=== PATIENT | male | born 1955 | race Caucasian/White ===

== ENCOUNTER → 2018-07-04 | Outpatient (CLI) | payer OTHER ==
[~2018-07-04] VITALS: Ht 175.3 cm; Wt 74.8 kg
[~2018-07-04] MED LIST: ACZONE60 GM TOP; BUPRENORPHINE HC2 MG SUBLING; CYMBALTA30 MG PO; CYMBALTA60 MG PO; DAPSONE25 MG PO; FLOMAX0.4 MG PO; NABUMETONE 750750 M1 PO; PRAVACHOL40 MG PO; PROBIOTIC1 EAC3 PO; VITAMIN B-121000 MC3 PO; ZOLOFT100 MG PO
--- NOTE | ~2018-07-04 | HPC ---
[facility] [address] [place] [address] PAIN MANAGEMENT CONSULTATION Name: NEDRA SPEARS Room #: REG FINN Chin.#: [id number] Admission: 07/04/18 ������������������ Attend Phys: Wander Burk MD Discharge: ������������������ Date of : 59 Report #: [id number] THIS REPORT FOR: //name// CC: [facility] physician/PCP Sean Burk DATE OF SERVICE: 07/04/2018 CHIEF COMPLAINT: Neck pain with some numbness in the left arm and pain in his right thumb. HISTORY OF PRESENT ILLNESS: The patient is a 62-year-old who has had a longstanding followup by the [facility]. Previously seen by Dr. Reji Randle and then by Dr. Javi Randle when Dr. Mendoza departed [place] in 05/2017. He has been treated for cervical radiculopathy following a posterior fusion that resulted in chronic ongoing pain. He also has low back pain and is status post laminectomy performed by Dr. Refugio Ardon, years ago. He has osteoarthritis and has had both hips replaced. 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 He describes a "rough year" and left that job. He has been covered by poor insurance, but just feels that things are improving some with stabilization of his life. He recently had a divorce as well. He has been given buprenorphine for chronic use. He takes one 2 mg tablet in the morning along with nabumetone, which has been helpful. On a typical day, he wakens with fairly significant discomfort and stiffness so common in patients with post-laminectomy syndrome and a history of arthritis with multiple joint replacements. He takes his medications, lays back down and 30 minutes later he is able to get going. Buprenorphine is a bit of an unusual medication to be used in this setting. He is not on Suboxone, the combination that includes naloxone and is used exclusively for opioid use disorder and addiction. He is on buprenorphine, which has indications for chronic pain. He is not sure why he is now on buprenorphine and has some misunderstanding about its actions. I had to remind him that it was an opioid. He reports that he did attend a pain program at [facility] in [place]. The 3-week day program focuses on managing pain without medication. Apparently, he was unable to completely manage pain and function well on a day to day basis without some form of medication. He reports that his primary symptom is left arm numbness without pain at night. The soreness in his neck seems to be managed fairly reasonably with the [facility] [address] [place] [address] PAIN MANAGEMENT CONSULTATION Name: NEDRA SPEARS Room #: REG [facility].#: [id number] Admission: 07/04/18 ������������������ Attend Phys: Wander Burk MD Discharge: ������������������ Date of : 59 Report #: [id number] buprenorphine. His opioid risk tool was completed and he is at low risk for addiction with an opioid risk score of 3 based upon a history of depression and ADD. PHYSICAL EXAMINATION: GENERAL: A pleasant 62-year-old. He is not a great historian. He remembers only certain parts of his previous visits when I queried him about certain things. He does not appear to be depressed or anxious and is outgoing. VITAL SIGNS: His blood pressure is 114/77, heart rate 76, respirations 14, BMI is 24.4. MUSCULOSKELETAL: Cervical range of motion is limited. There is a scar in the back in the lower cervical and upper thoracic region consistent with his report of cervical fusion. He has mild weakness noted in the left upper extremity. Deep tendon reflexes are diminished through the upper extremities, but are hyporeflexic in the lower extremities and he has 1 beat of clonus noted on the ankle on the right and one beat noted on the left. This would suggest some spinal cord compression at the cervical level. He has no other signs suggesting myelopathy. Some pain across the low back, limited range of motion there, mild straight leg raising discomfort. IMPRESSION: 1. Chronic cervicalgia, status post cervical laminectomy and fusion, Dr. Velasquez. 2. Chronic low back pain, status post laminectomy, Dr. Refugio Ardon. 3. Management of opioid medication buprenorphine for chronic intractable pain. Recently low dose 2 mg once daily seems to be satisfactory to help him with day to day improvement. RECOMMENDATIONS: I am going to continue him on his buprenorphine. I have renewed his medications for 3 months. I have renewed an opioid agreement and discussed the importance of safeguarding medications. He will let us know if he has any significant side effects or problems with medication before his next visit. Followup visit is scheduled in 3 months. ��������������������������������������������� ���������������������������������������� By: ��������������������������������������������� 1808 1336 Wander Burk MD /nt
[2018-07-04 10:29] VITALS: BP 114/77
--- NOTE | 2018-07-04 10:41 | NUR ---
Pain Clinic Assessment: 1. History of Osteoarthritis: History of Rheumatoid Arthritis: 2. Height: 5 ft. 9 in. 175.3 cm. Weight: 165.0 lb. oz. 74.844 kg. Patient's BMI: 24.4 3. Vital Signs: BP: 114/77 Pulse: 76 Resp: 14 Temp: 02 Sat: 96 ECG Mon: 4. Pain Intensity: 6 5. Fall Risk: Dizziness: N Needs help standing or walking: N Fallen in the last 3 months: N Fall risk comments: 6. Patient on Blood Thinner: None 7. History of Hypertension: N 8. Opioid Therapy greater than 6 weeks: Y Opiate Contract Signed: 9. Risk Assessment Tool Provided: LOW 10. Functional Assessment Tool: 11. Recreational Drug Use: Never Drug Type: Tobacco Use: Never Smoker Tobacco Type: Amount or Packs/day: How Many Years: Alcohol Use: Yes Frequency: Weekly Quant: 15+
== END ==
LOC: PAIN 07:06
DX: M54.2 Cervicalgia (principal); M54.5 Low back pain; M96.1 Postlaminectomy syndrome, not elsewhere classified; G89.4 Chronic pain syndrome; Z79.891 Long term (current) use of opiate analgesic

== ENCOUNTER → 2018-10-27 | Outpatient (CLI) | payer OTHER ==
[~2018-10-27] VITALS: Ht 175.3 cm; Wt 74.6 kg
[~2018-10-27] MED LIST changes: +CBD OIL SUBLING; +NABUMETONE 500500 M1 PO; +TRIAMCINOLONE A80 G2 TOP; +ZOLPIDEM TARTRA10 MG PO
[2018-10-27 10:15] VITALS: BP 109/78
--- NOTE | 2018-10-27 10:44 | NUR ---
Pain Clinic Assessment: 1. History of Osteoarthritis: SPINE History of Rheumatoid Arthritis: NONE 2. Height: 5 ft. 9 in. 175.3 cm. Weight: 164.4 lb. oz. 74.571 kg. Patient's BMI: 24.3 3. Vital Signs: BP: 109/78 Pulse: 85 Resp: 14 Temp: 02 Sat: 97 ECG Mon: 4. Pain Intensity: 6-7 5. Fall Risk: Dizziness: N Needs help standing or walking: N Fallen in the last 3 months: N Fall risk comments: 6. Patient on Blood Thinner: None 7. History of Hypertension: N 8. Opioid Therapy greater than 6 weeks: Y Opiate Contract Signed: 9. Risk Assessment Tool Provided: LOW 10. Functional Assessment Tool: 11. Recreational Drug Use: Never Drug Type: Tobacco Use: Never Smoker Tobacco Type: Amount or Packs/day: How Many Years: Alcohol Use: Yes Frequency: Daily Quant: 1
--- NOTE | 2018-11-01 17:25 | HPC ---
[facility] [address] [place] [address] PAIN MANAGEMENT CONSULTATION Name: NEDRA SPEARS Room #: REG FINN MStephanie.#: [id number] Admission: 10/27/18 ������������������ Attend Phys: Wander Burk MD Discharge: ������������������ Date of : 59 Report #: [id number] THIS REPORT FOR: //name// CC: [facility] physician/PCP Sean Burk DATE OF SERVICE: 10/27/2018 Followup visit for chronic cervicalgia status post cervical laminectomy and fusion. Chronic pain syndrome. Management of high risk medication for intractable pain. I am seeing the patient for the second time. He has been [facility]. He is on buprenorphine for pain, not for addiction. He takes 2 mg sublingual once daily and finds it quite satisfactory. He also uses a nonsteroidal anti-inflammatory drug. He does not complain much of medication related side effects and is grateful for the pain relief he receives from the buprenorphine. He is here today for renewal of his medication, would like a renewal of nabumetone. He also had some questions about medical marijuana. PHYSICAL EXAMINATION: He is 5 feet 9 inches, 164 pounds, BMI of 24.3. His blood pressure 109/78, heart rate 85, respirations 14. He scores his pain as a 6-7/10 when he is at work. Pain is worse as the day goes on. Most of his pain is in his neck and radiates to the scapula, but no further. He has tenderness around his scar. Deep tendon reflexes are normal. No strength loss. Sensation is diminished somewhat in the left arm. IMPRESSION: Cervicalgia. Mild recurrent radiculopathy with some numbness in the left arm. RECOMMENDATIONS: I will renew his buprenorphine at 2 mg sublingually daily with refills scheduled at four and eight weeks. Importance of safeguarding medication was discussed. He has no side effects. We discussed opioids, particularly the unusual opioid receptor activity a buprenorphine and its suitability as a chronic pain medication. I then discussed nonsteroidal anti-inflammatory drugs with him at some length. We discussed the different categories of NSAID and their safety profile. We discussed GI, cardiac and renal side effects. We talked about taking only one at a time and a proper dosing. He can use these as a p.r.n. medication and can use it in combination with his buprenorphine. [address] [address] PAIN MANAGEMENT CONSULTATION Name: NEDRA SPEARS Room #: REG FINN Velazco#: [id number] Admission: 10/27/18 ������������������ Attend Phys: Wander Burk MD Discharge: ������������������ Date of : 59 Report #: [id number] We also had a lengthy discussion about medical marijuana. [facility] will become 34 state in the [place] to allow medical marijuana sales. There is an article in the [place] paper today stating the [place] is the farthest along of any [facility] with the highest number of applications for dispensaries growing and physicians seeking to be certified. We will know more about [place]'s plan. I have shared with him information that I received from my recent trip to the annual international conference on opioids held in [place]. Much discussion there about buprenorphine as well as on medical marijuana with information from state word has been utilized. His medications renewed and questions were answered. Total time spent with the patient 25 minutes. Followup visit planned in three months. ��������������������������������������������� <ELECTRONICALLY SIGNED> ���������������������������������������� By: Wander Burk MD ��������������������������������������������� 11/01/18 1725 1344 [id number] Wander Burk MD /nt
== END ==
LOC: PAIN 06:56
DX: M54.12 Radiculopathy, cervical region (principal); M54.2 Cervicalgia; R20.0 Anesthesia of skin

== ENCOUNTER → 2019-01-30 | Outpatient (CLI) | payer BC ==
[~2019-01-30] VITALS: Ht 175.3 cm; Wt 71.2 kg
[2019-01-30 10:37] VITALS: BP 134/77
--- NOTE | 2019-01-30 10:45 | NUR ---
Pain Clinic Assessment: 1. History of Osteoarthritis: SPINE LEFT KNEE B/L HIPS History of Rheumatoid Arthritis: NONE 2. Height: 5 ft. 9 in. 175.3 cm. Weight: 157.0 lb. oz. 71.215 kg. Patient's BMI: 23.2 3. Vital Signs: BP: 134/77 Pulse: 104 Resp: 16 Temp: 02 Sat: 96 ECG Mon: 4. Pain Intensity: 5-TODAY, 7-AVG 5. Fall Risk: Dizziness: N Needs help standing or walking: N Fallen in the last 3 months: N Fall risk comments: 6. Patient on Blood Thinner: None 7. History of Hypertension: N 8. Opioid Therapy greater than 6 weeks: Y Opiate Contract Signed: 9. Risk Assessment Tool Provided: EUN 10. Functional Assessment Tool: 11. Recreational Drug Use: Never Drug Type: Tobacco Use: Never Smoker Tobacco Type: Amount or Packs/day: How Many Years: Alcohol Use: Yes Frequency: Weekly Quant: 10-12 WEEKLY
--- NOTE | 2019-01-31 09:24 | HPC ---
[facility] [address] [place] [address] PAIN MANAGEMENT CONSULTATION Name: NEDRA SPEARS [facility] [id number] Admission: 01/30/19 Attend Phys: Debi Ryan Discharge: Date of : 59 Report #: [id number] THIS REPORT FOR: //name// CC: Debi Burk MD DATE OF SERVICE: 01/30/2019 CHIEF COMPLAINT: Chronic cervicalgia, status post cervical laminectomy and fusion. HISTORY OF PRESENT ILLNESS: This is a very pleasant 63-year-old gentleman who returned to the pain clinic today for refill of his buprenorphine that he takes to help treat his chronic cervicalgia. He reports a pain score today of a 5/10. Pain is in his neck and occasionally in his lower back. He feels that it is a dull,throbbing, constant pain. It is worse with activity when he is on his feet. He currently works at [employer]. He finds this very beneficial to be around people and keeping him active. Some days he tells me he does overdo it and his pain is increase, but he feels that the medication is very beneficial in controlling most of his pain. He is wondering about if an increase on some days is feasible for him or not. He denies any problems with constipation or daytime sleepiness. ALLERGIES: GLUTEN. CURRENT LIST OF MEDICATIONS: Buprenorphine 2 mg daily, nabumetone p.r.n., CBD oil daily, Ambien 10 mg p.r.n., Cymbalta 90 mg daily, dapsone 25 mg daily, probiotic daily, vitamin B12, Zoloft 50 mg daily. PQRS: 1. Osteoarthritis in his spine, knees and hips. Denies any rheumatoid arthritis. 2. Height is 5 feet 9 inches, weight is 157, BMI is 23. 3. Vital signs: 134/77, pulse is 104, respirations 16, oxygen sat is 96. 4. Pain score is 5-7. 5. Denies dizziness, does not need help walking or standing, has not fallen in the last 3 months. 6. The patient is not on any blood thinners, but does take medicine for hypertension. 7. Opiate therapy is greater than 6 weeks; therefore, an opioid signed contract is on the chart. Risk assessment tool is low. Functional assessment is 2170. 8. Recreational drug use, he denies. He is not a smoker and drinks 10-12 [place] [address] PAIN MANAGEMENT CONSULTATION Name: TORYNEDRA JR Room #: [facility]#: [id number] Admission: 01/30/19 Attend Phys: eDbi Ryan Discharge: Date of : 59 Report #: [id number] PHYSICAL EXAMINATION: GENERAL: This is alert and orientated 62-year-old gentleman who appears his stated age, placing his current pain score at 5/10. HEENT: Normocephalic, atraumatic. Extraocular eye muscles are intact. Mucous membranes are moist. MUSCULOSKELETAL: Pain is in his neck that radiates into his scapula and occasionally into his arms with numbness and tingly. He has tenderness in his lumbar spine. Deep tendon reflexes are normal in his bilateral arms with no strength loss. Sensation is diminished slightly in his left arm compared to the right. IMPRESSION: 1. Cervicalgia. 2. Cervical radiculopathy, status post cervical laminectomy and fusion. 3. Management of high risk medications under terms of written opioid agreement. We reviewed the fact that opiate medications are being used to provide analgesia adequate to support activities of daily living, not attempting to achieve a specific pain score on the 0-10 Visual Analog Scale. The current opiate medications are providing sufficient analgesia to allow the patient to participate in activities of daily living. The patient is not exhibiting any aberrant behavior suggestive of drug diversion. The patient is not having any adverse reactions to medications. The patient is not suffering from daytime somnolence or mental acuity changes. The patient is managing opiate-induced constipation with appropriate adqa-itg-fewzysg agents and dietary considerations. The patient was counseled on concern for caution with operating a motor vehicle while using opiate medications. A physical exam was performed and the patient's functional status was evaluated. All patients with back pain were advised against the bed rest greater than 4 days and were advised to return to normal activities. Pain score assessment was noted and the treatment plan was reviewed with the patient. All current medications, both prescribed and OTC were reviewed and reconciled on the electronic medical record. Tobacco screening was accomplished and smoking cessation was advised when indicated. BMI was noted and diet/exercise modification was recommended for all patients following outside normal parameters. I reviewed with the patient today their responsibilities to safeguard prescription medications, reviewed their responsibility to utilize medications only as prescribed by the physician. They are to seek and receive pain medications only from 1 physician group ([facility]). They are to use 1 pharmacy and keep the clinic informed if they change pharmacies. Their responsibilities include making followup visits in a timely fashion and to avoid abrupt discontinuation of medication usage. Their responsibilities further include bringing their medications (bottles from the pharmacy with residual [facility] [address] [place] [address] PAIN MANAGEMENT CONSULTATION Name: NEDRA SPEARS JR Room #: REG FINN Velazco#: [id number] Admission: 01/30/19 Attend Phys: Debi Ryan Discharge: Date of : 59 Report #: [id number] pills) to the visit for possible confirmation of pill counts and the patient understands it is their responsibility to submit to random drug screens to ensure both that the medications prescribed are present, and that no other controlled substances are present. All prescriptions provided today were generated electronically. PLAN: 1. We discussed treatment options with the patient today. The patient finds that his buprenorphine is very beneficial in controlling his pain, some days, though when he is working harder at his current job at [employer], he finds that he needs to take an additional half a pill or sometimes 1 pill. We explained lowest most effective dose to him. He verbalizes understanding. He will try to take it as as needed basis instead of upon arising every day. 2. The patient finds that the CBD oil is also beneficial in controlling his pain. He does take that every day. 3. The patient is not needing nabumetone today. He finds that Advil as just as effective in controlling his pain, taking 4 tablets once a day when he feels that he needs it. We did discuss GI issues with nonsteroidal anti-inflammatories and the risk of cardiac and renal side effects taking them. We encouraged him taking them as needed only and not on a daily basis if he does not need them. 4. Scripts given for his buprenorphine 2 mg, #30 with 2 additional refills. The patient will follow up in 3 months. This medication places him at 20 morphine mEq, according to the CDC guidelines. 5. Dr. Wander Burk did see the patient and collaborated care with me today. <ELECTRONICALLY SIGNED> By: Debi Ryan 01/31/19 0924 1130 0032 Debi Ryan /nt
== END ==
LOC: PAIN 06:48
DX: M54.2 Cervicalgia (principal); M54.12 Radiculopathy, cervical region; Z79.899 Other long term (current) drug therapy

== ENCOUNTER → 2019-06-08 | Outpatient (CLI) | payer BC ==
[~2019-06-08] VITALS: Ht 175.3 cm; Wt 74.7 kg
[2019-06-08 14:36] VITALS: BP 116/76
--- NOTE | 2019-06-08 15:09 | NUR ---
Pain Clinic Assessment: 1. History of Osteoarthritis: SPINE LEFT KNEE B/L HIPS History of Rheumatoid Arthritis: NONE 2. Height: 5 ft. 9 in. 175.3 cm. Weight: 164.6 lb. oz. 74.662 kg. Patient's BMI: 24.3 3. Vital Signs: BP: 116/76 Pulse: 74 Resp: 14 Temp: 02 Sat: 98 ECG Mon: 4. Pain Intensity: 6 5. Fall Risk: Dizziness: N Needs help standing or walking: N Fallen in the last 3 months: N Fall risk comments: 6. Patient on Blood Thinner: None 7. History of Hypertension: N 8. Opioid Therapy greater than 6 weeks: Y Opiate Contract Signed: 07/04/18 9. Risk Assessment Tool Provided: LOW-3 10. Functional Assessment Tool: 11. Recreational Drug Use: Never Drug Type: Tobacco Use: Never Smoker Tobacco Type: Amount or Packs/day: How Many Years: Alcohol Use: Yes Frequency: Quant:
--- NOTE | 2019-06-09 11:28 | HPC ---
[facility] [place] [address] PAIN MANAGEMENT CONSULTATION Name: NEDRA SPEARS Manuel EPSTEIN [id number] Admission: 06/08/19 Attend Phys: Debi Ryan Discharge: Date of : 59 Report #: [id number] THIS REPORT FOR: cc: Sean Reyes MD,Sean Ryan,Debi NEELY ~ THIS REPORT FOR: //name// CC: Debi Reyes DATE OF SERVICE: 06/08/2019 CHIEF COMPLAINT: Chronic cervicalgia, status post cervical laminectomy and fusion and left knee pain. HISTORY OF PRESENT ILLNESS: This is a pleasant 63-year-old gentleman who returns to the pain clinic today for refill of his buprenorphine. He finds this very beneficial in helping with his low back, neck and left knee pain, stating his pain score is 6/10 today. He reports that it is a constant numbness pain that he experiences. He feels that it is worse after prolonged standing or sitting. He feels the medication as well as stretching and rest are very beneficial. The patient was scheduled to have a left knee surgery at earlier this month, but was put on hold due to a sore that was present. He has not had time to reschedule this, but plans to have the surgery in July. He feels that he will be able to walk much better after he has his total knee replaced and hopeful that may be he may be able to decrease some of his buprenorphine. The patient denies any problems with constipation or sleepiness as a result of his opioid medications. ALLERGIES: GLUTEN. CURRENT LIST OF MEDICATIONS: Buprenorphine 2 mg daily, CBD oil p.r.n., Aristocort, Ambien p.r.n., duloxetine, lactobacillus, dapsone, vitamin B12 and Cymbalta 60 mg. PQRS: 1. He has osteoarthritis in his spine, knees and hips. Denies any rheumatoid arthritis. 2. Height is 5 feet 9 inches, weight is 164, BMI is 24. 3. Vital signs; 116/76, pulse is 74, respirations 14, oxygen sat is 98. 4. Pain score 6/10. 5. Denies dizziness, does not need help walking or standing, has not fallen in the last [address] [address] PAIN MANAGEMENT CONSULTATION Name: TORYNEDRA Room #: REG [facility].#: [id number] Admission: 06/08/19 Attend Phys: Debi Ryan Discharge: Date of : 59 Report #: [id number] 6. The patient is not on any blood thinners or medicines for hypertension. His opioid therapy is greater than 6 weeks; therefore, an opioid signed contract is on the chart. 7. His risk assessment is low. Functional assessment is 40/70. 8. Recreational drug use, he denies. He is not a smoker and occasionally drinks alcohol. According to the prescription monitoring system, the patient is filling appropriately, filling them in a timely fashion from one physician. He is due to fill his medications today. According to the CDC guidelines, his morphine milliequivalent per day is 2. PHYSICAL EXAMINATION: GENERAL: This is alert and orientated, very pleasant 63-year-old gentleman who appears his stated age, placing his current pain score today at 6/10. HEENT: Normocephalic, atraumatic. Extraocular eye muscles are intact. Mucous membranes are moist. MUSCULOSKELETAL: He has tenderness in his left knee and pain that is increased with ambulation. Pain in his neck radiates into his scapula into his bilateral arms with numbness noted. Sensation is diminished slightly in his left arm when compared to the right, but upper extremity strength is equal at 5/5. IMPRESSION: 1. Cervicalgia. 2. Cervical radiculopathy, status post cervical laminectomy and fusion. 3. Osteoarthritis of the bilateral knees, left greater than right. 4. Management of high risk medications under terms of written opioid agreement. PLAN: 1. We discussed treatment options with the patient today. The patient finds his medication very beneficial taking one tablet a day. He will have Dr. Wander Burk send, prepare this prescription for his buprenorphine, #30 with 2 additional refills. 2. The patient states he is not taking nabumeton currently. He was needed to be off of this prior to his knee surgery. 3. The patient states he had tried CBD oil in the past. He is unsure if it is beneficial. He has not used it for 10 days and has not noticed a difference in any of his symptoms. He is unsure that he will continue this medication. 4. The patient is seen in collaboration with Dr. Wander Burk. He will return in 3 months for an appointment as needed. <ELECTRONICALLY SIGNED> By: Debi Ryan 06/09/19 1128 1630 2216 Debi Ryan /kyler
== END ==
LOC: PAIN 06-01 12:13
DX: M54.12 Radiculopathy, cervical region (principal); M17.0 Bilateral primary osteoarthritis of knee; G89.29 Other chronic pain; Z98.1 Arthrodesis status; Z88.8 Allergy status to other drugs, medicaments and biological substances; Z79.899 Other long term (current) drug therapy

== ENCOUNTER → 2019-08-28 | Outpatient (CLI) | payer BC ==
[~2019-08-28] VITALS: Ht 175.3 cm; Wt 73.7 kg
[2019-08-28 10:56] VITALS: BP 106/69
--- NOTE | 2019-08-28 11:04 | NUR ---
Pain Clinic Assessment: 1. History of Osteoarthritis: SPINE LEFT KNEE B/L HIPS History of Rheumatoid Arthritis: NONE 2. Height: 5 ft. 9 in. 175.3 cm. Weight: 162.4 lb. oz. 73.664 kg. Patient's BMI: 24.0 3. Vital Signs: BP: 106/69 Pulse: 79 Resp: 14 Temp: 02 Sat: 97 ECG Mon: 4. Pain Intensity: 6 5. Fall Risk: Dizziness: N Needs help standing or walking: N Fallen in the last 3 months: N Fall risk comments: 6. Patient on Blood Thinner: None 7. History of Hypertension: N 8. Opioid Therapy greater than 6 weeks: Y Opiate Contract Signed: 07/04/18 9. Risk Assessment Tool Provided: LOW-3 10. Functional Assessment Tool: 11. Recreational Drug Use: Current within past 3 mos Drug Type: MARIJUANA Tobacco Use: Never Smoker Tobacco Type: Amount or Packs/day: How Many Years: Alcohol Use: Yes Frequency: Weekly Quant: 10 BEER
--- NOTE | 2019-08-30 15:34 | HPC ---
[facility] [place] [address] PAIN MANAGEMENT CONSULTATION Name: NEDRA SPEARS JR [facility]: [id number] Admission: 08/28/19 Attend Phys: Debi Ryan Discharge: Date of : 59 Report #: [id number] THIS REPORT FOR: cc: Sean Reyes MD,Sean Ryan,Debi NEELY ~ CC: Wander Lin MD DATE OF SERVICE: 08/28/2019 CHIEF COMPLAINT: Chronic cervicalgia, status post cervical laminectomy and fusion, left knee pain and right thumb pain. HISTORY OF PRESENT ILLNESS: This is a very pleasant 63-year-old gentleman who returns to the pain clinic today for refills of his buprenorphine that he feels is very beneficial in controlling most of his pain in his neck. He continues to have ongoing left knee pain. He was to have surgery, but it has been postponed twice, once for the COVID virus and once due to a sore on his knee. He states at this time, he is going to continue to put it off, it has slowly improved. He now is complaining of right hand and especially right thumb pain. He is going to undergo a procedure in October with orthopedic at [facility]. The patient today is reporting that his pain is increased with being on his feet and working too long. He does work at [employer] and has been quite busy. He feels that stretching as well as his medication has been beneficial. ALLERGIES: GLUTEN. CURRENT LIST OF MEDICATIONS: Buprenorphine 2 mg daily, Ambien p.r.n., Cymbalta, lactobacillus, vitamin B12 and CBD oil. PATIENT'S PQRS: 1. He has arthritic changes in his spine, knees and hips as well as his hands. Denies any rheumatoid arthritis. 2. Height is 5 feet 9 inches, weight is 162, BMI is 24. 3. Vital signs 106/69, pulse is 79, respirations 14, oxygen sat is 97%. 4. Pain score is 6/10. 5. Denies dizziness, does not need help walking or standing, has not fallen in the last 3 months. 6. The patient is not on any blood thinners or medicine for hypertension. His opioid therapy is greater than 6 weeks; therefore, an opioid signed contract is on the chart. Risk assessment tool is low. Functional assessment is 40/70. 7. The patient currently uses edibles on a monthly basis. He denies any tobacco use and does drink beer weekly. 8. According to the prescription monitoring system, the patient is filling appropriately for his medication. He is due to fill at the end of this week. His morphine mEq is 2 according to [place] [address] PAIN MANAGEMENT CONSULTATION Name: NEDRA SPEARS JR Room #: REG FINN Velazco#: [id number] Admission: 08/28/19 Attend Phys: Debi Ryan Discharge: Date of : 59 Report #: [id number] PHYSICAL EXAMINATION: GENERAL: This is alert and orientated 63-year-old gentleman who appears his stated age, placing his current pain score at 6/10 today. HEENT: Normocephalic, atraumatic. Extraocular eye muscles are intact. MUSCULOSKELETAL: He has tenderness in his left knee that is increased with ambulation. Pain in his cervical spine that radiates into his scapula, into his bilateral arms with occasional numbness. Also complains of tenderness in his right thumb today. His upper extremity strength judged to be 5/5 in all major muscle groups. IMPRESSION: 1. Cervicalgia. 2. Cervical radiculopathy, status post cervical laminectomy and fusion. 3. Osteoarthritis involving the bilateral knees and hands. 4. Management of high risk medications under terms of written opioid agreement. We reviewed the fact that opiate medications are being used to provide analgesia adequate to support activities of daily living, not attempting to achieve a specific pain score on the 0-10 Visual Analog Scale. The current opiate medications are providing sufficient analgesia to allow the patient to participate in activities of daily living. The patient is not exhibiting any aberrant behavior suggestive of drug diversion. The patient is not having any adverse reactions to medications. The patient is not suffering from daytime somnolence or mental acuity changes. The patient is managing opiate-induced constipation with appropriate djkq-bgl-hrglkuz agents and dietary considerations. The patient was counseled on concern for caution with operating a motor vehicle while using opiate medications. PLAN: 1. We discussed treatment options with the patient today. The patient finds his Suboxone beneficial controlling his pain. He would like to continue this. He notices a significant increase in pain if he does forget to take his medicine upon awakening in the morning. Scripts will be given for #30 with 2 additional refills for a total of 3 months. 2. The patient reports he does continue CBD oil and occasionally will use edible marijuana for medicinal purposes. I explained to the patient he does live in [place], and it is not currently legal. He reports that he is moving to [place]. I encouraged him to talk to a medical marijuana doctor and offered his card today. The patient states he only prefers to use this on very increased pain days, mostly once a month. I explained to him that he will need to decide whether he would like to use medical marijuana or opioid medications. He does find the opioids more beneficial. He reports he may look into the medical marijuana doctors, but prefers to continue on his opioid medications. 3. The patient is seen with the collaboration with Dr. Wander Lin today. The patient will return in 3 months. At that time, we will do a random drug [address] [address] PAIN MANAGEMENT CONSULTATION Name: NEDRA SPEARS Room #: REG FINN Velazco#: [id number] Admission: 08/28/19 Attend Phys: Debi Ryan Discharge: Date of : 59 Report #: [id number] screen on the patient since it has been greater than one year since his last screen. <ELECTRONICALLY SIGNED> By: Debi Ryan 08/30/19 1534 [id number] Debi Ryan /nt
== END ==
LOC: PAIN 06:55
DX: M54.12 Radiculopathy, cervical region (principal); M25.561 Pain in right knee; M96.1 Postlaminectomy syndrome, not elsewhere classified; M25.562 Pain in left knee; M17.0 Bilateral primary osteoarthritis of knee; M19.042 Primary osteoarthritis, left hand; M19.041 Primary osteoarthritis, right hand; F11.20 Opioid dependence, uncomplicated; Z87.891 Personal history of nicotine dependence; Z79.899 Other long term (current) drug therapy; Z88.8 Allergy status to other drugs, medicaments and biological substances

== ENCOUNTER → 2019-12-07 | Outpatient (CLI) | payer BC ==
[~2019-12-07] VITALS: Ht 175.3 cm; Wt 74.6 kg
[2019-12-07 10:26] VITALS: BP 116/86
--- NOTE | 2019-12-07 10:34 | NUR ---
Pain Clinic Assessment: 1. History of Osteoarthritis: SPINE LEFT KNEE B/L HIPS History of Rheumatoid Arthritis: NONE 2. Height: 5 ft. 9 in. 175.3 cm. Weight: 164.4 lb. oz. 74.571 kg. Patient's BMI: 24.3 3. Vital Signs: BP: 116/86 Pulse: 95 Resp: 18 Temp: 02 Sat: 91 ECG Mon: 4. Pain Intensity: 6 5. Fall Risk: Dizziness: N Needs help standing or walking: N Fallen in the last 3 months: Y Fall risk comments: 6. Patient on Blood Thinner: None 7. History of Hypertension: N 8. Opioid Therapy greater than 6 weeks: Y Opiate Contract Signed: 07/04/18 9. Risk Assessment Tool Provided: LOW-3 10. Functional Assessment Tool: 11. Recreational Drug Use: Current within past 3 mos Drug Type: MARJUANA Tobacco Use: Never Smoker Tobacco Type: Amount or Packs/day: How Many Years: Alcohol Use: Yes Frequency: Quant:
--- NOTE | 2019-12-11 13:29 | HPC ---
[facility] [address] [place] [address] PAIN MANAGEMENT CONSULTATION Name: NEDRA SPEARS JR Room #: REG LEATHA Elsy.#: [id number] Admission: 12/07/19 Attend Phys: Debi Ryan Discharge: Date of : 59 Report #: [id number] THIS REPORT FOR: cc: Sean Reyes MD,Sean Ryan,Debi NEELY ~ CC: Wander Burk MD DATE OF SERVICE: 12/07/2019 CHIEF COMPLAINT: Chronic cervicalgia, status post cervical laminectomy and fusion and low back pain. HISTORY OF PRESENT ILLNESS: This is a 64-year-old gentleman who returns to the pain clinic today for a refill of his medications that he uses for his neck pain. He does report a pain score of 6/10 today, states it is a constant, aching pain. He has been experiencing some low back pain that has been radiating to his hips and knees. He believes that may be related to the weather changes. He states that his pain is worse when he is standing for a prolonged period of time, usually when he is working, but he has not been working at [employer] due to the COVID outbreak. He was a [employer] employee and they are not utilizing him at this time. He beleives the buprenorphine is very beneficial, taking it first thing in the morning. There are days that he does forget to take his medication and on those days, he feels that he does not have as much energy and does not accomplish as much. The patient reports he had a syncopal episode that his family did call the ambulance and required him to stay at [facility] for several days at the end of August. He did see a neurologist and a slope runner. Tests per his report were inconclusive. He has not started any new medicine and not had any further treatments. He has not had further episodes since that time. ALLERGIES: GLUTEN. CURRENT LIST OF MEDICATIONS: Buprenorphine 2 mg sublingual daily, Ambien at bedtime, Cymbalta 90 mg daily, dapsone 25 mg daily and vitamin B12. PQRS: 1. He has osteoarthritis in his spine, knees and hips. Denies any rheumatoid arthritis. 2. Height is 5 feet 9 inches, weight is 164, BMI is 24. 3. Vital signs: Blood pressure 116/86, pulse is 95, respirations 18, oxygen sat is 91. 4. Pain score 6/10. 5. Denies dizziness, does not need help walking or standing, has fallen in the last 3 months. The patient is not on any blood thinners [place] [address] PAIN MANAGEMENT CONSULTATION Name: NEDRA SPEARS Room #: REG [facility]#: [id number] Admission: 12/07/19 Attend Phys: Debi Ryan Discharge: Date of : 59 Report #: [id number] hypertension. 6. Opioid therapy is greater than 6 weeks; therefore, an opioid signed contract is on the chart. Risk assessment tool is low. Functional assessment is 43/70. 7. Recreational drug use in the past 3 months of marijuana. He does not smoke tobacco and does occasionally drink alcohol. According to the prescription monitoring system, he is filling appropriately. He is past due to fill his medications according to the prescription monitoring system and we will collect a random drug screen on this patient today. PHYSICAL EXAMINATION: GENERAL: This is alert and orientated 64-year-old gentleman who appears his stated age, placing his current pain score at 6/10 today. HEENT: Normocephalic, atraumatic. Extraocular eye muscles are intact. He is wearing a mask. MUSCULOSKELETAL: He has pain in his cervical spine that radiates into his scapula and with slight numbness in his hands. He has tenderness across his lumbosacral region that radiates into his legs and complains of left knee pain that does increase with ambulation. His upper and lower extremity strength judged to be 5/5 in all major muscle groups. The patient has a normal gait. IMPRESSION: 1. Cervicalgia. 2. Cervical radiculopathy, status post cervical laminectomy and fusion. 3. Osteoarthritis involving knees and hands. 4. Low back pain. 5. Management of high risk medications under terms of written opioid agreement. We reviewed the fact that opiate medications are being used to provide analgesia adequate to support activities of daily living, not attempting to achieve a specific pain score on the 0-10 Visual Analog Scale. The current opiate medications are providing sufficient analgesia to allow the patient to participate in activities of daily living. The patient is not exhibiting any aberrant behavior suggestive of drug diversion. The patient is not having any adverse reactions to medications. The patient is not suffering from daytime somnolence or mental acuity changes. The patient is managing opiate-induced constipation with appropriate izlk-lkm-opznjkp agents and dietary considerations. The patient was counseled on concern for caution with operating a motor vehicle while using opiate medications. PLAN: 1. We discussed treatment options with the patient today. He does find his buprenorphine beneficial in controlling his pain. We will refill this medication today of 2 mg 1 sublingual daily, quantity 30 with 2 additional refills. 2. We will obtain a random drug screen on this patient today. He did verify [address] [address] PAIN MANAGEMENT CONSULTATION Name: NEDRA SPEARS JR Room #: REG [facility]#: [id number] Admission: 12/07/19 Attend Phys: Debi Ryan Discharge: Date of : 59 Report #: [id number] that he took his medications this morning. 3. We did talk again, discussed medical marijuana and the fact that he does live in [place], though he has a [place] residence. He does occasionally use marijuana, though has not obtained a green card. We discussed this further. The patient reports he will no longer use medical marijuana. He would prefer to use his buprenorphine. He states he had used it once a week, but finds at times it makes him too confused when using the edibles. He reports he would like to continue with his current regimen of meds from Dr. Burk. 4. The patient is seen in collaboration today with Dr. Dodge who is covering for Dr. Burk today. The patient will return in 3 months. We encouraged to make a timely appointment since he took his last medications this morning. <ELECTRONICALLY SIGNED> By: Debi Ryan 12/11/19 1329 1126 1211 Debi Ryan /nt
== END ==
LOC: PAIN 06:44
PROVIDERS: ATTEND Clinical Nurse Specialist Adult Health
DX: M54.12 Radiculopathy, cervical region (principal); G89.29 Other chronic pain; M96.1 Postlaminectomy syndrome, not elsewhere classified; M43.26 Fusion of spine, lumbar region; M25.561 Pain in right knee; M25.562 Pain in left knee; M19.041 Primary osteoarthritis, right hand; M19.042 Primary osteoarthritis, left hand; Z88.8 Allergy status to other drugs, medicaments and biological substances; Z79.899 Other long term (current) drug therapy

== ENCOUNTER → 2020-01-15 | Outpatient (CLI) | payer BC ==
[~2020-01-15] VITALS: Ht 175.3 cm; Wt 72.7 kg
[2020-01-15 10:21] VITALS: BP 121/86
--- NOTE | 2020-01-15 10:36 | NUR ---
Pain Clinic Assessment: 1. History of Osteoarthritis: SPINE LEFT KNEE B/L HIPS History of Rheumatoid Arthritis: NONE 2. Height: 5 ft. 9 in. 175.3 cm. Weight: 160.2 lb. oz. 72.666 kg. Patient's BMI: 23.6 3. Vital Signs: BP: 121/86 Pulse: 78 Resp: 14 Temp: 02 Sat: 95 ECG Mon: 4. Pain Intensity: 6-7 5. Fall Risk: Dizziness: N Needs help standing or walking: N Fallen in the last 3 months: N Fall risk comments: 6. Patient on Blood Thinner: None 7. History of Hypertension: N 8. Opioid Therapy greater than 6 weeks: Y Opiate Contract Signed: 07/04/18 9. Risk Assessment Tool Provided: LOW-3 10. Functional Assessment Tool: 11. Recreational Drug Use: Current within past 3 mos Drug Type: Tobacco Use: Never Smoker Tobacco Type: Amount or Packs/day: How Many Years: Alcohol Use: Yes Frequency: Quant:
--- NOTE | 2020-01-16 13:02 | HPC ---
[facility] [address] [place] [address] PAIN MANAGEMENT CONSULTATION Name: NEDRA SPEARS Room #: REG [facility].#: [id number] Admission: 01/15/20 Attend Phys: Debi Ryan Discharge: Date of : 59 Report #: [id number] THIS REPORT FOR: cc: Sean Reyes MD,Sean Ryan,Debi NEELY ~ CC: Wander Burk MD DATE OF SERVICE: 01/15/2020 CHIEF COMPLAINT: Chronic cervicalgia, status post cervical laminectomy and fusion and low back pain. HISTORY OF PRESENT ILLNESS: This is a pleasant 64-year-old gentleman who returns to the pain clinic today to discuss a possible increase in his buprenorphine a few extra pills a month. He states that it is beneficial on most days, but some days when he is working at [employer] he does have significant increased pain and on those days, he would like to have an extra pill in case to control his pain slightly better. The patient denies any problems with overmedication or constipation as a result of his medications. He feels that the pain is mostly located in his low back, though he does experience bilateral hip and knee pain and occasionally some pain in his neck, rating his pain score at 6-7/10 today, again being on his feet at work is most problematic. He feels that the medication as well as rest and stretching have been beneficial for him. ALLERGIES: GLUTEN. CURRENT LIST OF MEDICATIONS: Buprenorphine 2 mg tablet, Ambien, Cymbalta, Dapsone, vitamin B12 and Cymbalta 60. PQRS: 1. He has a history of osteoarthritis in his spine, knees and hips. Denies rheumatoid arthritis. 2. Height is 5 feet 9 inches, weight is 160, BMI is 23. 3. Vital signs 121/86, pulse is 78, respirations 14, oxygen sat is 95%. Pain score is 6-7. 4. Fall risk. Denies dizziness, does not need help walking or standing, has not fallen in the last 3 months. The patient is not on any blood thinners and does not have a history of hypertension. 5. Opioid therapy is greater than 6 weeks; therefore, an opioid signed contract is on the chart. Risk assessment is low. Functional assessment is 43/70. Recreational drug use in the past. He is not a smoker and occasionally drinks alcohol. According to the prescription monitoring system, the patient has filled his last [facility] [address] [place] [address] PAIN MANAGEMENT CONSULTATION Name: NEDRA SPEARS JR Room #: REG [facility]#: [id number] Admission: 01/15/20 Attend Phys: Debi Ryan Discharge: Date of : 59 Report #: [id number] 2 prescriptions on time. We do have a recent opioid drug screen that is appropriate for his medications that he takes. According to the morphine milliequivalent conversion from the CDC, his current level is 20 MME per day. PHYSICAL EXAMINATION: GENERAL: This is alert and orientated 64-year-old gentleman who appears his stated age, rating his pain score at 6/10 today. HEENT: Normocephalic, atraumatic. Extraocular muscles are intact. He is wearing a mask. MUSCULOSKELETAL: He has pain in his cervical region that radiates into his arms bilaterally and also has tenderness in his lumbosacral region that radiates into his hips bilaterally, greater on the left than the right. He has a normal gait. His lower extremity strength judged to be symmetrical at 5/5. He is without edema in his lower extremities. IMPRESSION: 1. Cervicalgia. 2. Cervical radiculopathy, status post cervical laminectomy and fusion. 3. Osteoarthritis involving multiple joints. 4. Low back pain. 5. Management of high risk medications under terms of written opioid agreement. We reviewed the fact that opiate medications are being used to provide analgesia adequate to support activities of daily living, not attempting to achieve a specific pain score on the 0-10 Visual Analog Scale. The current opiate medications are providing sufficient analgesia to allow the patient to participate in activities of daily living. The patient is not exhibiting any aberrant behavior suggestive of drug diversion. The patient is not having any adverse reactions to medications. The patient is not suffering from daytime somnolence or mental acuity changes. The patient is managing opiate-induced constipation with appropriate wabt-gyt-cxytnfl agents and dietary considerations. The patient was counseled on concern for caution with operating a motor vehicle while using opiate medications. PLAN: 1. We discussed treatment options with the patient today. Though, he was requesting increase of a few pills on days that he works when his pain becomes more problematic, Dr. Wander Burk is agreeable to increasing him 5 pills a month. Scripts will be written today for buprenorphine 2 mg, #35 for a 30-day supply for today and 2 additional months. We will void his last prescription that is at the pharmacy. 2. The patient and I discussed the morphine milliequivalent of several medications that he has been on in the past and he feels that the buprenorphine has been most beneficial in controlling his pain. [facility] [address] [place] [address] PAIN MANAGEMENT CONSULTATION Name: NEDRA SPEARS Manuel EPSTEIN Room #: BETH FINN Velazco#: [id number] Admission: 01/15/20 Attend Phys: Debi Ryan Discharge: Date of : 59 Report #: [id number] 3. The patient is seen today in collaboration with Dr. Wander Burk. He will return in 3 months. <ELECTRONICALLY SIGNED> By: Debi Ryan 01/16/20 1302 1119 1421 Debi Ryan /kyler
== END ==
LOC: PAIN 06:57
PROVIDERS: ATTEND Clinical Nurse Specialist Adult Health
DX: M54.12 Radiculopathy, cervical region (principal); M19.90 Unspecified osteoarthritis, unspecified site; F11.20 Opioid dependence, uncomplicated; Z88.8 Allergy status to other drugs, medicaments and biological substances; Z79.899 Other long term (current) drug therapy

== ENCOUNTER → 2020-05-16 | Outpatient (CLI) | payer BC ==
[~2020-05-16] MED LIST changes: +BENADRYL25 MG PO; +DEPAKOTE500 MG PO; +MELATONIN5 MG PO
== END ==
LOC: PAIN 09:00
PROVIDERS: ATTEND Anesthesiology Pain Medicine
DX: M54.2 Cervicalgia (principal); G89.29 Other chronic pain; F11.20 Opioid dependence, uncomplicated; M96.1 Postlaminectomy syndrome, not elsewhere classified; R56.9 Unspecified convulsions; N20.0 Calculus of kidney; F32.9 Major depressive disorder, single episode, unspecified; Z88.8 Allergy status to other drugs, medicaments and biological substances; Z79.899 Other long term (current) drug therapy

== ENCOUNTER → 2020-10-03 | Outpatient (CLI) | payer BC ==
[~2020-10-03] VITALS: Ht 175.3 cm; Wt 68.4 kg
[2020-10-03 13:30] VITALS: BP 127/76
--- NOTE | 2020-10-03 13:37 | NUR ---
Pain Clinic Assessment: 1. History of Osteoarthritis: SPINE LEFT KNEE B/L HIPS History of Rheumatoid Arthritis: NONE 2. Height: 5 ft. 9 in. 175.3 cm. Weight: 150.8 lb. oz. 68.402 kg. Patient's BMI: 22.3 3. Vital Signs: BP: 127/76 Pulse: 80 Resp: 18 Temp: 02 Sat: 95 ECG Mon: 4. Pain Intensity: 6 5. Fall Risk: Dizziness: Y Needs help standing or walking: N Fallen in the last 3 months: N Fall risk comments: 6. Patient on Blood Thinner: None 7. History of Hypertension: N 8. Opioid Therapy greater than 6 weeks: Y Opiate Contract Signed: 07/04/18 9. Risk Assessment Tool Provided: LOW-3 10. Functional Assessment Tool: 11. Recreational Drug Use: Current within past 3 mos Drug Type: Tobacco Use: Never Smoker Tobacco Type: Amount or Packs/day: How Many Years: Alcohol Use: Yes Frequency: Weekly Quant: HAS CUT DOWN
== END ==
LOC: PAIN 07:02
PROVIDERS: ATTEND Clinical Nurse Specialist Adult Health
DX: G89.29 Other chronic pain (principal); M54.2 Cervicalgia; M54.5 Low back pain; M17.12 Unilateral primary osteoarthritis, left knee; M16.0 Bilateral primary osteoarthritis of hip; R56.9 Unspecified convulsions; Z98.1 Arthrodesis status; Z88.8 Allergy status to other drugs, medicaments and biological substances; Z79.891 Long term (current) use of opiate analgesic; Z79.899 Other long term (current) drug therapy

== ENCOUNTER → 2020-12-12 | Outpatient (CLI) | payer BC ==
[~2020-12-12] VITALS: Ht 175.3 cm; Wt 69.2 kg
[~2020-12-12] MED LIST changes: +MOVANTIK25 MG PO
[2020-12-12 09:36] VITALS: BP 109/67
--- NOTE | 2020-12-12 09:42 | NUR ---
Pain Clinic Assessment: 1. History of Osteoarthritis: SPINE LEFT KNEE B/L HIPS History of Rheumatoid Arthritis: NONE 2. Height: 5 ft. 9 in. 175.3 cm. Weight: 152.6 lb. oz. 69.219 kg. Patient's BMI: 22.5 3. Vital Signs: BP: 109/67 Pulse: 74 Resp: 16 Temp: 02 Sat: 94 ECG Mon: 4. Pain Intensity: 5 5. Fall Risk: Dizziness: N Needs help standing or walking: N Fallen in the last 3 months: N Fall risk comments: 6. Patient on Blood Thinner: None 7. History of Hypertension: N 8. Opioid Therapy greater than 6 weeks: Y Opiate Contract Signed: 07/04/18 9. Risk Assessment Tool Provided: LOW-3 10. Functional Assessment Tool: 11. Recreational Drug Use: Current within past 3 mos Drug Type: Tobacco Use: Never Smoker Tobacco Type: Amount or Packs/day: How Many Years: Alcohol Use: Yes Frequency: Quant:
== END ==
LOC: PAIN 06:51
PROVIDERS: ATTEND Clinical Nurse Specialist Adult Health
DX: G89.4 Chronic pain syndrome (principal); M54.2 Cervicalgia; K59.03 Drug induced constipation; T40.2X5A Adverse effect of other opioids, initial encounter; Z79.891 Long term (current) use of opiate analgesic; Y92.9 Unspecified place or not applicable

== ENCOUNTER → 2021-04-03 | Outpatient (CLI) | payer BC ==
[~2021-04-03] VITALS: Ht 175.3 cm; Wt 65.8 kg
[2021-04-03 10:55] VITALS: BP 106/73
--- NOTE | 2021-04-03 11:11 | NUR ---
Pain Clinic Assessment: 1. History of Osteoarthritis: SPINE LEFT KNEE B/L HIPS History of Rheumatoid Arthritis: NONE 2. Height: 5 ft. 9 in. 175.3 cm. Weight: 145.0 lb. oz. 65.772 kg. Patient's BMI: 21.4 3. Vital Signs: BP: 106/73 Pulse: 71 Resp: 14 Temp: 02 Sat: 97 ECG Mon: 4. Pain Intensity: 7-8 5. Fall Risk: Dizziness: N Needs help standing or walking: Y Fallen in the last 3 months: N Fall risk comments: 6. Patient on Blood Thinner: None 7. History of Hypertension: N 8. Opioid Therapy greater than 6 weeks: Y Opiate Contract Signed: 07/04/18 9. Risk Assessment Tool Provided: LOW-3 10. Functional Assessment Tool: 11. Recreational Drug Use: Current within past 3 mos Drug Type: Tobacco Use: Never Smoker Tobacco Type: Amount or Packs/day: How Many Years: Alcohol Use: Yes Frequency: Quant:
== END ==
LOC: PAIN 06:57
PROVIDERS: ATTEND Clinical Nurse Specialist Adult Health
DX: G89.29 Other chronic pain (principal); M54.2 Cervicalgia; K59.03 Drug induced constipation; M17.12 Unilateral primary osteoarthritis, left knee; Z79.899 Other long term (current) drug therapy; Z88.8 Allergy status to other drugs, medicaments and biological substances